=== PATIENT | male | born 1955 | race Caucasian/White ===

== ENCOUNTER → 2017-08-02 | Day surgery (SDC) | payer OTHER ==
[~2017-08-02] VITALS: Ht 182.9 cm; Wt 100.0 kg
[~2017-08-02] MED LIST: BUPIVACAINE HCL PF 0.25% 30 ML VIAL ONE; CEPH-460 PO; CHLORHEXIDINE GLUCONATE 2 % 1 PACK (2 CLOTHS) TOPICAL PRN; DEXAMETHASONE SOD PHOS 4 MG/ML VIAL ONE; HYDR-3288 PO; HYDROmorphone HCL PF 2 MG/ML VIAL ONE; LABETALOL HCL 100 MG/20 ML VIAL ONE; LACTATED RINGER'S 1000 ML IV PRN; LIDOCAINE HCL 1% PF 30 ML VIAL ONE; LIDOCAINE HCL 2% 50 ML VIAL ONE; METOPROLOL TARTRATE 25 MG TAB PO PRN; MIDAZOLAM HCL 2 MG/2 ML VIAL ONE; MORPHINE SULFATE 4 MG/ML INJ ONE; NAPR220C22 PO; NEOMYCIN/POLYMYXIN 1 ML G.U. IRRIGANT ONE; POVIDONE IODINE 5% (ANTISEPSIS KIT) 4 APPLICATIONS EACH NARE PRN; PROMETHAZINE INJ 25 MG/ML VIAL ONE; SODIUM CHLORID 0.9% 500 ML IV PRN; SODIUM CHLORIDE 0.9% INJ 100 ML ONE; ceFAZolin 2 GM/DEX PREMIX 50 ML IV SCH; ceFAZolin INJ 1,000 MG VIAL ONE
--- NOTE | 2017-08-02 08:52 | EKG ---
Date Performed: 08/02/2017 Time Performed: 07:36:17 PTAGE: 62 years EKG: Sinus rhythm BORDERLINE LEFT AXIS DEVIATION BORDERLINE ECG NO PREVIOUS TRACING DOCTOR: Herberth Blunt Interpretating Date/Time 08/02/2017 08:47:19
[2017-08-02 10:15] VITALS: PULSE 87; TEMP 97.7
--- NOTE | 2017-08-02 10:39 | MP ---
cc: Joey Medrano MD DATE OF OPERATION: 08/02/2017 PREOPERATIVE DIAGNOSIS: Left fifth finger Dupuytren's contracture. POSTOPERATIVE DIAGNOSIS: Left fifth finger Dupuytren's contracture. PROCEDURE PERFORMED: Left fifth palmar fasciectomy with local tissue rearrangement. SURGEON: Joey Medrano III, MD. PROCEDURE: The patient was brought to the operating room, placed supine on the operating room table. After the correct site and side of surgery were verified by members of each team in the room multiple times including the patient and myself and after adequate preoperative markings and preoperative written consent were verified by everyone and after adequate preoperative time-out was performed to everyone's satisfaction, after adequate general anesthesia had been achieved, the left upper extremity was prepped and draped in the traditional sterile surgical fashion. A 50/50 mixture of 2% plain lidocaine and 0.25% plain Marcaine was infiltrated in the skin and subcutaneous tissue in the palm. The limb was exsanguinated with an Diego wrap and a highly placed well-padded tourniquet was inflated to 200 mmHg for a total of 38 minutes. Angulated incisions were made overlying the fascial cord that went from the base of the palm to the PIP joint and just distally to it. Arnoldo style incisions were used in the finger. It was placed palm up left hand and blunt dissection was performed. The neurovascular bundles on either side of the cord were identified and protected and did, in fact, go right through the fascial cord near the MP joint and it was dissected free and protected. The fascial cord was dissected completely free in its entirety and passed off the field as a specimen. Once this was done, the finger completely extended and even easily hyperextended. At this point, the axillary tourniquet was released and the hand and all the fingers including the 5th finger became immediately soft, pink, warm and had brisk capillary refill. A liters worth of saline irrigation was used and then gentle pressure was held for 10 minutes. Once this was done, the skin edges were reapproximated using multiple simple and interrupted 4-0 nylon sutures and advancement flaps and some rotational flaps were also employed. No skin graft was used. Thorough irrigation with the saline was performed again. A 1/4 inch Mildred drain was split longitudinally and a half was used to drain in the palm. The hand and arm were thoroughly cleansed and dried. Betadine and Adaptic dressings were applied on top of the wounds, followed by a bulky soft dressing, the usual circumferential dressing and then a well-padded, well-molded volar immobilizing splint keeping all the fingers completely extended was made in the usual fashion. The patient was awakened from anesthesia and transported to the postanesthesia care unit awake and in stable condition at the end of the case. Sponge, needle and instrument counts were correct at the end of the case was reported by the nurses in the room. MD COOPER Willett/VIN , 10:13 AM , 10:38 AM
[2017-08-02 11:15] VITALS: BP 159/92; PULSE 85; RESP 16; O2SAT 97
== END | disposition home or self-care (01) ==
LOC: PHSDC 06:06
PROVIDERS: ATTEND Orthopaedic Surgery Hand Surgery
DX: M72.0 Palmar fascial fibromatosis [Dupuytren] (principal); R94.31 Abnormal electrocardiogram [ECG] [EKG]
CPT/HCPCS: 01810; 26123; 88304; 93005; J0690; J1100; J1170; J2250; J2270; J2550; J3010; J7120